=== PATIENT | male | born 1980 | race Caucasian/White ===

== ENCOUNTER 2020-04-02 20:44 | Emergency (ER) | payer MEDICAID, SELFPAY ==
[2020-04-02 20:51] VITALS: BP 139/90; PULSE 81; RESP 18; TEMP 37.1; O2SAT 100; BMI 18.8
[2020-04-02 20:59] VITALS: BP 139/90; PULSE 81; RESP 18; TEMP 37.1; O2SAT 100; BMI 18.8
--- NOTE | 2020-04-02 21:36 | HMH.EDUTC ---
[facility] [place] Clinical Impression: Abscess, dental, Pain, dental Disposition: Home, Self-Care Condition on Discharge: Good Instructions: Tooth Abscess Additional Instructions: Follow up with your dentist as scheduled. Take the medication as directed. Follow up with your regular doctor. GO TO THE ER FOR ANY WORSENING SYMPTOMS OR CONCERNS Prescriptions: Ibuprofen [Ibuprofen 800mg Tablet] 800 mg PO Q8HP PRN #30 tab PRN Reason: Moderate Pain Transmission Status: Received by [id number] Amoxicillin [Amoxicillin 500mg Tab] 500 mg PO TID 10 Days #30 tab Transmission Status: Received by [facility]/pharmacy #[id number] Referrals: Noelle Hanna [Primary Care Provider] - Time of Disposition: 21:45 Medical Decision Making - Medical Records Medical records reviewed: No: I reviewed the patient's medical records. - P[place]ito Inquiry Pt receiving controlled substance: No Vital Signs: 04/02/20 20:51 04/02/20 20:59 04/02/20 21:50 Temperature 98.7 F 98.7 F 98.7 F Temperature Source Oral Oral Pulse Rate 81 Pulse Rate [Right] 81 81 Respiratory Rate 18 18 18 Blood Pressure 139/90 Blood Pressure [Left Arm] 139/90 139/90 Blood Pressure Mean [Left Arm] 106 106 Blood Pressure Source [Left Arm] Automatic Cuff Automatic Cuff Blood Pressure Position [Left Arm] Supine Sitting 02 Sat by Pulse Oximetry 100 100 Oxygen Delivery Method Room Air Room Air Orders (Tests/Meds): ED MEDICATIONS Discontinued Medications Generic Name Dose Route Start Last Admin Trade Name Freq PRN Reason Stop Dose Admin Benzocaine/Butamben/Tetracaine HCl 1 gm 04/02/20 21:04 04/02/20 21:21 Cetacaine [place] TP 04/02/20 21:05 1 gm ONCE ONE Administration Ceftriaxone Sodium 1 gm 04/02/20 21:42 04/02/20 21:56 Rocephin 1gm Vial IM 04/02/20 21:43 1 gm ONCE ONE Administration Protocol Ketorolac Tromethamine 60 mg 04/02/20 21:42 04/02/20 21:56 Toradol 60mg/2ml Vial IM 04/02/20 21:43 60 mg ONCE ONE Administration Lidocaine HCl 15 ml 04/02/20 21:04 04/02/20 21:21 Lidocaine 2% Viscous Solution 15ml Udc PO 04/02/20 21:05 15 ml ONCE ONE Administration Lidocaine HCl 0 ml 04/02/20 21:42 04/02/20 21:56 Lidocaine 1% 10ml Mdv IM 04/02/20 21:43 2.1 ml ONCE ONE Administration [facility] [place] - General Stated complaint: R side of Jaw pain Time Seen by Provider: 04/02/20 21:37 Mode of Arrival: Ambulatory Source of Information: Patient Limitations: No Limitations Description of Symptoms (Recalled from Triage Doc. by RN): PATIENT C/O RIGHT LOWER TOOTH PAIN X 2 DAYS HEENT Symptoms (Recalled from RN notes): Yes Resp Symptoms (Recalled from RN notes): No Skin Symptoms (Recalled from RN notes): No MS Symptoms (Recalled from RN notes): No Functional Status (Recalled from RN notes): WNL - History of Present Illness Provider Complaint: He has been having dental pain for the past 2 weeks. He has an appointment with his dentist 2 days from now, but he states that he is havign severe pain tonight. He denies any fever or chills. - Related Data Previous Rx's Medication Instructions Recorded Amoxicillin [Amoxicillin 500mg Tab] 500 mg PO TID 10 Days #30 tab 04/02/20 Ibuprofen [Ibuprofen 800mg 800 mg PO Q8HP PRN #30 tab 04/02/20 Tablet] Allergies Allergy/AdvReac Type Severity Reaction Status Date / Time No Known Allergies Allergy Verified 09/26/18 13:20 - Worker's Comp Is this a Worker's Comp case?: No [facility] History - Hepatitis A Screen Drug use history?: No High risk sexual behaviors?: No History of sexually transmitted infection?: No Currently employed?: No Childcare worker?: No Do you have indoor plumbing?: Yes Do you have electricity?: Yes Attestation statement:: This patient has been screened for Hepatitis A risk factors. I have reviewed the patient's past medical history: Yes - Social History Smoking Status: Current every day smoker Tobacco
[2020-04-02 21:50] VITALS: BP 139/90; PULSE 81; RESP 18; TEMP 37.1; O2SAT 100
== END 2020-04-02 21:55 | disposition home or self-care (01) ==
LOC: ER 20:52 → UTC 20:53
PROVIDERS: Emergency Provider Nurse Practitioner Family; PCP Nurse Practitioner Family
DX: K04.7 Periapical abscess without sinus (principal); F17.210 Nicotine dependence, cigarettes, uncomplicated
CPT/HCPCS: 96372; 99201

== ENCOUNTER 2020-07-05 17:26 | Emergency (ER) | payer MEDICAID, SELFPAY ==
[2020-07-05 17:58] VITALS: BP 127/90; PULSE 94; RESP 16; TEMP 36.5; O2SAT 99; BMI 21.2
--- NOTE | 2020-07-05 18:07 | HMH.EDUTC ---
[facility] [place] Clinical Impression: Bee sting reaction Qualifiers: Encounter type: initial encounter Injury intent: undetermined intent Qualified Code(s): T63.444A - Toxic effect of venom of bees, undetermined, initial encounter Disposition: Home, Self-Care Condition on Discharge: Good Instructions: How to Care for an Insect Bite or Sting, Insect Bites and Stings, DI for Insect Bites and Stings, Diphenhydramine Additional Instructions: Over the counter Benadryl as directed on package for itching and rash Start steriod tomorrow 07/06/20 Over the counter Claritan may help with reactions See Family Doctor for further evaluation for reaction to bee sting Return if needed Straight to ER if any life threatening symptoms Prescriptions: methylPREDNISolone [Medrol 4mg tab] 4 mg PO DIRECTED #21 tab Transmission Status: Pending to [facility]/pharmacy #[id number] Referrals: Noelle Hanna [Primary Care Provider] - As needed Time of Disposition: 18:14 Medical Decision Making - Pablito Inquiry Pt receiving controlled substance: No P[place] was queried for this patient: No Vital Signs: 07/05/20 17:58 07/05/20 18:35 Temperature 97.7 F 97.7 F Temperature Source Oral Oral Pulse Rate 94 H Pulse Rate [Left] 94 H Respiratory Rate 16 16 Blood Pressure 127/90 Blood Pressure [Right Arm] 127/90 Blood Pressure Mean [Right Arm] 102 Blood Pressure Source [Right Arm] Automatic Cuff Blood Pressure Position [Right Arm] Sitting 02 Sat by Pulse Oximetry 99 Oxygen Delivery Method Room Air Orders (Tests/Meds): ED MEDICATIONS Discontinued Medications Generic Name Dose Route Start Last Admin Trade Name Hannah PRN Reason Stop Dose Admin Famotidine 20 mg 07/05/20 18:08 07/05/20 18:26 Pepcid 20mg Tablet PO 07/05/20 18:09 20 mg ONCE ONE Administration Loratadine 10 mg 07/05/20 18:08 07/05/20 18:25 Claritin 10mg Tablet PO 07/05/20 18:09 10 mg ONCE ONE Administration Methylprednisolone Sodium Succinate 125 mg 07/05/20 18:08 07/05/20 18:26 Solu-Medrol 125mg/2ml Vial IM 07/05/20 18:09 125 mg ONCE ONE Administration Medical Decision Narrative: Rash much improved patient dc'd home and advised to start steriods tomorrow and continue over the counter Bendaryl to help with itching [facility] [place] - General Stated complaint: stung by wasp, reaction Time Seen by Provider: 07/05/20 18:07 Mode of Arrival: Ambulatory Source of Information: Patient Limitations: No Limitations Description of Symptoms (Recalled from Triage Doc. by RN): Allergic reaction to wasp sting. CPTA Benadryl HEENT Symptoms (Recalled from RN notes): No Resp Symptoms (Recalled from RN notes): No Skin Symptoms (Recalled from RN notes): Yes MS Symptoms (Recalled from RN notes): No Functional Status (Recalled from RN notes): WML - History of Present Illness Provider Complaint: Patient states that he was stung on right forearm about an hour or so ago and started breaking out States that he took some benadryl but noticed that he was getting hives on his belly and arms so he come in to get checked and get some medication due to having a reaction to wasp sting States that he has never had reaction before - Related Data Previous Rx's Medication Instructions Recorded Amoxicillin [Amoxicillin 500mg Tab] 500 mg PO TID 10 Days #30 tab 04/02/20 Ibuprofen [Ibuprofen 800mg 800 mg PO Q8HP PRN #30 tab 04/02/20 Tablet] methylPREDNISolone [Medrol 4mg 4 mg PO DIRECTED #21 tab 07/05/20 tab] Allergies Allergy/AdvReac Type Severity Reaction Status Date / Time No Known Allergies Allergy Verified 09/26/18 13:20 - Worker's Comp Is this a Worker's Comp case?: No Is this an [facility] Worker's Comp?: No Is this a [facility] Worker's Comp?: No [facility] History - Hepatitis A Screen Drug use history?: No High risk sexual behaviors?: No History of sexually transmitted infection?: No Currently employed?: No Childcare worker?: No Do you flores
[2020-07-05 18:35] VITALS: BP 127/90; PULSE 94; RESP 16; TEMP 36.5; O2SAT 99
== END 2020-07-05 18:55 | disposition home or self-care (01) ==
PROVIDERS: Emergency Provider Nurse Practitioner; PCP Nurse Practitioner Family
DX: T63.441A Toxic effect of venom of bees, accidental (unintentional), initial encounter (principal); F17.210 Nicotine dependence, cigarettes, uncomplicated
CPT/HCPCS: 96372; 99201

== ENCOUNTER 2022-02-26 15:37 | Emergency (ER) | payer SELFPAY ==
[2022-02-26 15:52] VITALS: BP 119/87; PULSE 81; RESP 16; TEMP 36.6; O2SAT 100; BMI 21.9
[2022-02-26 16:55] VITALS: BP 119/87; PULSE 83; RESP 17; TEMP 37.1; O2SAT 97; BMI 21.9
--- NOTE | 2022-02-26 16:55 | XR_ITS ---
PROCEDURE INFORMATION: Exam: XR Cervical Spine Exam date and time: 02/26/2022 4:59 PM Age: 42 years old Clinical indication: Neck pain; Additional info: Neck pain x 1.5 weeks TECHNIQUE: Imaging protocol: XR of the cervical spine. Views: 2 or 3 views. COMPARISON: CR [id number] XR chest portable 09/26/2018 1:54 PM FINDINGS: Bones/joints: No acute fracture or significant listhesis. Cervical disc spaces are mildly narrowed at C4-C5 and C5-C6 levels, with slight anterior spondylosis.There are no lytic skeletal lesions seen. Visualized upper ribs are intact. Soft tissues: No acute findings in the soft tissues. No prevertebral swelling. Lungs: Visualized lung apices are unremarkable. IMPRESSION: 1. No acute findings. 2. Mild degenerative disc disease and spondylosis at C4-C5 and C5-C6 levels.
--- NOTE | 2022-02-26 16:58 | HMH.EDUTC ---
[facility] [place] Clinical Impression: Cervical strain, acute Qualifiers: Encounter type: initial encounter Qualified Code(s): S16.1XXA - Strain of muscle, fascia and tendon at neck level, initial encounter Disposition: Home, Self-Care Condition on Discharge: Good Instructions: DI for Cervical Muscle Strain Additional Instructions: follow up with pcp tylenol as needed for pain if symptoms worsen return or be seen in ed Referrals: Provider,Referral, MD [Primary Care Provider] - Time of Disposition: 17:40 Medical Decision Making - Pablito Inquiry Pt receiving controlled substance: No Vital Signs: 02/26/22 15:52 02/26/22 16:55 Temperature 97.8 F 98.7 F Temperature Source Oral Oral Pulse Rate [Left Radial] 81 83 Respiratory Rate 16 17 Blood Pressure [Left Arm] 119/87 119/87 Blood Pressure Mean [Left Arm] 97 97 Blood Pressure Source [Left Arm] Automatic Cuff Blood Pressure Position [Left Arm] Sitting 02 Sat by Pulse Oximetry 100 97 Oxygen Delivery Method Room Air Orders (Tests/Meds): ED MEDICATIONS Discontinued Medications Generic Name Dose Route Start Last Admin Trade Name Hannah PRN Reason Stop Dose Admin Dexamethasone Sodium Phosphate 4 mg 02/26/22 17:00 02/26/22 17:29 Dexamethasone 4mg/Ml 1ml Vial IM 02/26/22 17:01 4 mg ONCE ONE Administration Ketorolac Tromethamine 15 mg 02/26/22 17:00 02/26/22 17:29 Ketorolac 30mg/Ml Vial IM 02/26/22 17:01 15 mg ONCE ONE Administration [facility] [place] - General Chief complaint: [facility] Stated complaint: neck pain Time Seen by Provider: 02/26/22 16:58 Mode of Arrival: Ambulatory Limitations: No Limitations Description of Symptoms (Recalled from Triage Doc. by RN): left sided neck pain HEENT Symptoms (Recalled from RN notes): No Resp Symptoms (Recalled from RN notes): No Skin Symptoms (Recalled from RN notes): No MS Symptoms (Recalled from RN notes): Yes Functional Status (Recalled from RN notes): wnl - History of Present Illness Provider Complaint: 42 yr old male presents for left side neck pain. pt states he woke up a cover a week ago with neck pain and it is not improving. pt states no injury - Related Data Previous Rx's Medication Instructions Recorded Amoxicillin [Amoxicillin 500mg Tab] 500 mg PO TID 10 Days #30 tab 04/02/20 Ibuprofen [Ibuprofen 800mg 800 mg PO Q8HP PRN #30 tab 04/02/20 Tablet] methylPREDNISolone [Medrol 4mg 4 mg PO DIRECTED #21 tab 07/05/20 tab] Allergies Allergy/AdvReac Type Severity Reaction Status Date / Time No Known Allergies Allergy Verified 02/26/22 16:57 - Worker's Comp Is this a Worker's Comp case?: No [facility] History - Hepatitis A Screen Attestation statement:: This patient has been screened for Hepatitis A risk factors. I have reviewed the patient's past medical history: Yes Medical History: Denies:: Cancer, Diabetes Mellitus Type 1, Diabetes Mellitus Type 2, Internal Pacemaker, MRSA Other Surgeries: No: Pacemaker Amputation: No Fractures: No - Social History Smoking Status: Current every day smoker Tobacco Type: cigarettes # Packs/Day (cigarettes): 1 Alcohol Intake: never Substance Use Type: heroin, inhalants Occupational Status: employed ROS Obtained: Yes Systems reviewed as appropriate & no additional complaints - Constitutional Constitutional: Reports system reviewed and no additional complaints, except as docu, Denies fatigue, Denies fever(s) - Eyes Eyes: Reports system reviewed and no additional complaints, except as docu, Denies dry eyes - ENT Ears, Nose, Mouth, and Throat: Reports system reviewed and no additional complaints, except as docu, Denies ear discharge - Cardiovascular Cardiovascular: Reports system reviewed and no additional complaints, except as docu, Denies chest pain - Respiratory Respiratory: Reports system reviewed and no additional complaints, except as docu, Denies cough - Gastrointestinal Gastroint
[2022-02-26 17:41] VITALS: BP 119/87; PULSE 83; RESP 17; TEMP 37.1
== END 2022-02-26 17:42 | disposition home or self-care (01) ==
PROVIDERS: Emergency Provider Nurse Practitioner Family
DX: S16.1XXA Strain of muscle, fascia and tendon at neck level, initial encounter (principal)
CPT/HCPCS: 72040; 96372; 99212; G0463

== ENCOUNTER 2023-06-25 13:25 | Emergency (ER) | payer SELFPAY ==
[2023-06-25] VITALS (11 sets, daily range): BP systolic 130–164; BP diastolic 80–108; PULSE 55–105; RESP 16–18; TEMP 36.6–36.8; O2SAT 94–100; BMI 22.3
[2023-06-25 13:39] LABS: Basophils # 0.1 K/mm3 (0-0.2); Basophils % 0.4 % (0.1-2.0); Eosinophils # 0.1 K/mm3 (0.0-0.4); Eosinophils % 0.6 % (0.1-12.0); Hematocrit 47.3 % (42.0-52.0); Hemoglobin 14.6 g/dL (14.1-18.0); Lymphocytes # 1.3 K/mm3 (0.7-4.5); Lymphocytes % 10.6 % (10-50); Mean Corpuscular HGB Conc 30.9 g/dL (31.8-35.4); Mean Corpuscular Hemoglobin 28.1 pg (27.0-31.2); Mean Corpuscular Volume 91.2 fl (80-94); Mean Platelet Volume 7.3 fl (7.4-10.4); Monocytes # 0.4 K/mm3 (0.1-1.0); Monocytes % 3.6 % (1.7-9.3); Neutrophils # 10.2 K/mm3 (1.8-7.8); Neutrophils % 84.8 % (37.0-80.0); Platelet Count 300 K/mm3 (142-424); Red Blood Count 5.19 M/mm3 (4.60-6.20); Red Cell Distribution Width 13.4 % (11.5-17.5)
[2023-06-25 13:40] LABS: Chloride 104 mmol/L (98-107); Sodium 142 mmol/L (136-145)
[2023-06-25 13:41] LABS: Potassium 3.2 mmoL/L (3.5-5.1)
[2023-06-25 13:43] LABS: Alanine Aminotransferase 20 U/L (12-78); Albumin Level 4.1 g/dl (3.5-5.0); Albumin/Globulin Ratio 1.6 (1.1-1.8); Alkaline Phosphatase 70 U/L (38-126); Anion Gap 11.2 mEq/L (5-15); Aspartate Amino Transferase 26 U/L (17-59); Bilirubin,Total 0.3 mg/dl (0.2-1.3); Blood Urea Nitrogen 16 mg/dl (9-20); Carbon Dioxide 30 mmol/L (22.0-30.0); Creatinine Clearance Estimated 81 mL/min (50-200); Estimated Glomerular Filt Rate 82 ml/min (>60); GFR (African American) 100 ML/MIN (>60); Globulin 2.5 g/dL (1.3-3.2); Total Protein,Serum 6.6 g/dl (6.3-8.2)
[2023-06-25 13:44] LABS: Calcium 9.2 mg/dl (8.4-10.2); Glucose 136 mg/dl (74-100)
--- NOTE | 2023-06-25 13:57 | CT_ITS ---
FINAL REPORT TECHNIQUE: Postcontrast axial images through the abdomen and pelvis were performed. This study was performed with techniques to keep radiation doses as low as reasonably achievable, (ALARA). Individualized dose reduction techniques using automated exposure control or adjustment of mA and/or kV according to the patient's size were employed. CLINICAL HISTORY: abd pain, R flank FINDINGS: Abdomen: The lung bases are clear. The heart size is normal. The liver is fatty infiltrated. The gallbladder is present with no CT visible gallstones. The spleen is unremarkable. The adrenals are normal. The pancreas is unremarkable. The left kidney is unremarkable. There is moderate right hydronephrosis secondary to a 3 mm distal right ureteral stone. There is perirenal fluid. Forniceal rupture is not excluded. The aorta is normal in caliber. No free fluid or adenopathy is identified. No findings for mechanical bowel obstruction are identified. Pelvis: The appendix is not identified. There are no secondary signs suggesting appendicitis. The urinary bladder is almost completely collapsed. The prostate is normal size. There are bilateral undescended testicles in the inguinal canals. No free fluid, free air, abscess or adenopathy is identified. IMPRESSION: Distal right ureteral stone with moderate hydronephrosis. Forniceal rupture not excluded. Bilateral undescended testicles. Reviewed, Interpreted and Dictated by Yesy Lutz MD Transcribed by Rj Braden Authenticated and [facility]
--- NOTE | 2023-06-25 14:07 | HMH.EDGENADL ---
Discharge Plan Disposition Patient Disposition: Left Against Medical Advice Condition: Undetermined Prescriptions Prescriptions: No Action amoxicillin 500 MG tablet 500 mg PO TID 10 Days Qty: 30 0RF ibuprofen 800 MG tablet 800 mg PO Q8HP PRN (Reason: Moderate Pain) Qty: 30 0RF methylprednisolone 4 MG tablet 4 mg PO DIRECTED Qty: 21 0RF Rx Instructions: Take as directed on package instructions Referrals Follow up/Referrals: Provider,Referral, MD [Referring] - See instructions Activity Restrictions/Add. Instructions Additional Instructions/Restrictions: Please return to the emergency department if you choose to resume care. As discussed, the risks of leaving include serious infection and , so I encourage you to return if you change your mind. Clinical Impressions Clinical Impression: Calcium nephrolithiasis Discharge ED Provider: Darron Han General Adult HPI <Jaziel Ambrosio MD - Last Filed: 06/25/23 15:55> General Chief complaint: Abdominal Pain Stated complaint: RLQ ABD pain since this AM Time Seen by Provider: 06/25/23 13:30 Mode of Arrival: EMS Source of Information: Patient Limitations: No Limitations Description of Symptoms (Recalled from ER Triage Doc. by RN): Pt arrives via ems with c/o right lower quadrant pain that began today while he was working outside. States that the pain began suddenly and is a 10/10. States that the pain is a squeezing pain. Denies any nausea or vomiting. Last bm was this morning and normal per pt. History of Present Illness HPI narrative: 43-year-old male presenting with right lower quadrant pain. Started while he was working outside today on his motorcycle. States it is 10 out of 10, starts in right lower quadrant, radiates to right flank. Not associate with nausea, vomiting, fevers or chills or overlying skin changes. Denies any trauma. Patient has had normal bowel movement today without blood. Never had pain like this in the past. No history of abdominal surgeries. Related Data Previous Rx's Medication Instructions Recorded amoxicillin 500 mg tablet 500 mg PO TID 10 days #30 tabs 04/02/20 ibuprofen 800 mg tablet 800 mg PO Q8HP PRN Moderate Pain 04/02/20 #30 tabs methylprednisolone 4 mg tablet 4 mg PO DIRECTED #21 tabs 07/05/20 Allergies Allergy/AdvReac Type Severity Reaction Status Date / Time No Known Allergies Allergy Verified 02/26/22 16:57 PFSH <Jaziel Ambrosio MD - Last Filed: 06/25/23 15:55> [facility] Disclaimer: The information contained in this section may have been updated after the patient was seen, as this information can be updated by other users. Social History Smoking Status: Current every day smoker tobacco type: cigarettes packs per day: 1 second hand exposure: No alcohol intake: never substance use type: heroin and inhalants current occupational status: employed Travel in the last 8 weeks: None current occupational exposures/hazards: No caffeine: Yes <Jaziel Ambrosio MD - Last Filed: 06/25/23 15:55> ROS Obtained: Yes All systems reviewed & no additional complaints except as documented Physical Exam <Jaziel Ambrosio MD - Last Filed: 06/25/23 15:55> General General appearance: alert, in no apparent distress and other ( ) Head Head exam: atraumatic and normocephalic Eye Eye exam: Present normal appearance, PERRL and EOMI ENT ENT exam: Present mucous membranes moist Neck Neck exam: Present normal inspection, full ROM and trachea midline Respiratory Respiratory exam: Absent respiratory distress, wheezes, stridor, accessory muscle use or prolonged expiratory phase Cardiovascular Cardiovascular exam: Present regular rate and normal rhythm Abdominal Exam Abdominal exam: Present soft; Absent distention, tenderness, guarding, rebound, rigidity or normal bowel sounds Extremities Exam Extremities exam: Absent edema Neurological Exam Neurological exam: Present alert, oriented X3, CN II-XII intact
--- NOTE | 2023-06-25 14:09 | PC.NURSE ---
Pt ambulatory to bathroom and able to collect urine sample
[2023-06-25 14:11] LABS: Microscopic, Urine URINE MICROSCOPIC (MICROSCOPIC)
[2023-06-25 14:12] LABS: Lactic Acid 0.8 mmol/L (0.7-2.1)
[2023-06-25 14:15] LABS: Appearance,Urine CLEAR (Clear); Bilirubin,Urine Negative (Negative); Blood, Urine 3+ (Negative); Color,Urine YELLOW (Yellow); Glucose,Urine (UA) Negative (Negative); Ketones,Urine Negative (Negative); Leukocyte Esterase,Urine Negative (Negative); Nitrate,Urine Negative (Negative); Protein,Urine Negative (Negative); Specific Gravity, Urine >= 1.030 (1.005-1.030); Urobilinogen,Urine 0.2 EU/dl (0.2)
[2023-06-25 14:16] LABS: Lipase 66 U/L (23-300)
[2023-06-25 14:29] LABS: RBC,Urine TNTC #/hpf (0-3); Squamous Epithelial Cell,Urine Occasional #/hpf (0-5)
--- NOTE | 2023-06-25 14:56 | PC.NURSE ---
Rounded on pt. No needs voiced at this time. Call light within reach.
--- NOTE | 2023-06-25 16:47 | PC.NURSE ---
Rounded on pt. States he is Feeling a little better . No needs voiced. Visitor remains at BS.
--- NOTE | 2023-06-25 18:24 | PC.NURSE ---
Dr. Han at to speak with pt
--- NOTE | 2023-07-28 10:00 | PC.NURSE ---
pt ct result was on worklist. Reviewed pt chart, pt noted to have left AMA, Dr. Han charted that he had a discussion about risks of pt leaving AMA and what probable diagnosis of pt were. Notified ER MD Zelaya (doctor on shift at this time) of CT finding found on worklist. Notified him pt left AMA. States to do follow up call on pt. Both numbers listed on pt chart called. voicemail left requesting a return call.
== END 2023-06-25 18:48 | disposition left against medical advice (07) ==
PROVIDERS: Emergency Medicine; Emergency Provider Emergency Medicine; PCP Nurse Practitioner Family
DX: N13.30 Unspecified hydronephrosis (principal); F17.210 Nicotine dependence, cigarettes, uncomplicated; N20.1 Calculus of ureter; R31.9 Hematuria, unspecified
CPT/HCPCS: 74177; 80053; 81001; 83605; 83690; 85025; 96374; 96375; 99285; J0131; J2405; Q9967